=== PATIENT | female | born 1995 | race Caucasian/White ===

== ENCOUNTER 2021-08-04 23:47 | Inpatient (IN) | payer BC ==
[~2021-08-04] VITALS: Ht 165.1 cm; Wt 49.9 kg
--- NOTE | 2021-08-05 00:23 | NUR ---
BIBSELF C/O GEN ABD PAIN X2-3 DAYS. PAST 3 HRS RLQ PAIN WITH NAUSEA. BREATHING EVEN AND UNLABORED PLACED ON MONITOR AND PULSE OX AND ALL V/S STABLE.
[2021-08-05 01:30] LABS: BASOPHILS # (AUTO) 0.1 K/uL (0.0-0.2); BASOPHILS % (AUTO) 0.4 % (0.0-2.0); EOSINOPHILS % (AUTO) 1.4 % (0.0-6.0); HEMATOCRIT 37 % (33-45); HEMOGLOBIN 12.8 g/dL (11.5-14.8); LYMPHOCYTES # (AUTO) 1.7 K/uL (0.8-4.8); LYMPHOCYTES % (AUTO) 9.9 % (20.0-44.0); MEAN CORPUSCULAR HGB CONC 35 g/dl (31.0-36.0); MEAN CORPUSCULAR VOLUME 94 fL (82-100); MONOCYTES # (AUTO) 0.8 K/uL (0.1-1.30); MONOCYTES % (AUTO) 4.8 % (2.0-12.0); NEUTROPHILS # (AUTO) 14.1 K/uL (1.8-8.9); NEUTROPHILS % (AUTO) 83.5 % (43.0-81.0); PLATELET COUNT (AUTO) 242 K/uL (150-450); RED BLOOD CELL COUNT(AUTO) 3.95 MIL/uL (4.0-5.2); WHITE BLOOD COUNT (AUTO) 16.9 K/uL (4.3-11.0)
--- NOTE | 2021-08-05 01:43 | NUR ---
CALLED LAB TO F/U ON URINE
[2021-08-05 01:49] LABS: CALCIUM, SERUM 8.8 mg/dL (8.5-10.1); CREATININE 0.7 mg/dL (0.6-1.3); POTASSIUM 3.5 mmol/L (3.5-5.1)
[2021-08-05 01:53] LABS: BILIRUBIN,URINE NEGATIVE (NEGATIVE); COLOR,URINE YELLOW (YELLOW); LEUKOCYTE ESTERASE ,URINE NEGATIVE (NEGATIVE); NITRITE, URINE NEGATIVE (NEGATIVE); PROTEIN,URINE NEGATIVE (NEGATIVE); UGLUCOSE NEGATIVE (NEGATIVE); UROBILINOGEN,URINE 0.2 EU/dL (0.2)
[2021-08-05 01:55] LABS: ALBUMIN 3.5 g/dL (3.4-5.0); BILIRUBIN,DIRECT 0.1 mg/dL (0.0-0.2); BILIRUBIN,TOTAL 0.3 mg/dL (0.2-1.0); TOTAL PROTEIN, SERUM 7.4 g/dL (6.4-8.2)
[2021-08-05 01:58] LABS: BACTERIA,URINE Moderate /HPF (None Seen); RBC,URINE 0-2 /HPF (0-2); SQUAMOUS EPITHELIAL CELL,UR Few /HPF (None Seen)
[2021-08-05] MEDS ORDERED: CEFTRIAXONE 1GM BAG (ER ONLY) 50 ML IV ONE ×2 (02:21→02:30)
[2021-08-05] MEDS ORDERED: CT SWABBABLE VALVE TRANS SET 1 EA INFUS.SET MC ONE (02:46)
[2021-08-05] MEDS ORDERED: IV NS 0.9% 250 ML IV ONE (02:46)
[2021-08-05] MEDS ORDERED: IOHEXOL-300 100 ML VIAL IV ONE (02:46)
--- NOTE | 2021-08-05 03:14 | NUR ---
[facility]
[2021-08-05] MEDS ORDERED: METRONIDAZOLE 500MG/ NS 100ML 100 ML IV ONE (04:14)
[2021-08-05] MEDS ORDERED: IV NS 0.9% 1,000 ML IV PRN (04:30)
[2021-08-05] MEDS ORDERED: ONDANSETRON HCL/PF 4 MG/2 ML VIAL IVP PRN (04:30)
[2021-08-05] MEDS ORDERED: MORPHINE SULFATE INJ 2 MG/ML DISP.SYRIN IV PRN (04:30)
[2021-08-05] MEDS ORDERED: MAG HYDROX/AL HYDROX/SIMETH 30 ML UDC PO PRN (04:30)
[2021-08-05] MEDS ORDERED: FLAGYL/NS RTU 500 MG/100 ML PIGGYBACK IV ONE (04:30)
--- NOTE | 2021-08-05 04:38 | NUR ---
[facility] SWAB COLLECTED AND SENT TO LAB. PATIENT'S BELONGINGS LIST DONE.
--- NOTE | 2021-08-05 05:22 | NUR ---
REPORT GIVEN TO BRIDGER
--- NOTE | 2021-08-05 05:45 | NUR ---
ADMISSION NOTES PT ARRIVED AROUND 0545. AOx4, ABLE TO MAKE NEEDS KNOWN. ON RA AND TOLERATING WELL. NO SOB NOTED. NO S/SX OF RESPIRATORY DISTRESS NOTED. IV ACCESS IN RAC #18 RUNNING S @ 90 ML/HR. SAFETY PRECAUTIONS IN PLACE: BED IN LOWEST, LOCKED POSITION, SIDERAILS UPx2, AND BRAKES ON. TABLE AND CALL LIGHT WITHIN REACH. WILL CONTINUE TO MONITOR.
[2021-08-05] MEDS ORDERED: PIPERACILLIN /TAZOBACTAM 3.375 G VIAL IV ONE (05:56)
[2021-08-05] MEDS: ZOSYN IVPB 3.375 G in IV D5W 50ml IV ONE ×2 (05:57→06:21)
[2021-08-05] MEDS ORDERED: PIPERACILLIN /TAZOBACTAM 3.375 G in IV D5W 50 ML IV SCH (06:00)
--- NOTE | 2021-08-05 06:00 | NUR ---
PT WAS TRANSFERED TO THIRD FLOOR IN STABLE CONDITION.
[2021-08-05 06:33] VITALS: BP 97/61
--- NOTE | 2021-08-05 06:59 | NUR ---
MS RN CLOSING NOTES PT IN BED, AWAKE. AOx4, ABLE TO MAKE NEEDS KNOWN. ON RA AND TOLERATING WELL. NO SOB NOTED. NO S/SX OF RESPIRATORY DISTRESS NOTED. IV ACCESS IN RAC #18 RUNNING S @ 90 ML/HR. ALL NEEDS MET. PT KEPT NPO PER MD ORDER. PT KEPT CLEAN AND DRY. SAFETY PRECAUTIONS IN PLACE: BED IN LOWEST, LOCKED POSITION, SIDERAILS UPx2, AND BRAKES ON. TABLE AND CALL LIGHT WITHIN REACH. WILL ENDORSE TO ONCOMING SHIFT FOR EFREN.
--- NOTE | 2021-08-05 07:30 | NUR ---
MS RN OPENING NOTES RECEIVED PT IN BED, AWAKE. AOx4, ABLE TO MAKE NEEDS KNOWN. ON RA TOLERATING WELL. NO SOB NOTED. IN NO ACUTE DISTRESS NOTED. IV ACCESS IN RAC #18 RUNNING S @ 90 ML/HR. REINFORCED NPO. SAFETY PRECAUTIONS IN PLACE: BED IN LOWEST, LOCKED POSITION, SIDE RAILS UPx2, AND BRAKES ON, TABLE AND CALL LIGHT WITHIN REACH. WILL CONTINUE TO MONITOR ACCORDINGLY.
[2021-08-05 08:00] VITALS: BP 99/60
[2021-08-05] MEDS: PIPERACILLIN /TAZOBACTAM 3.375 G in IV D5W 100 ML IV SCH ×2 (09:18→17:11)
[2021-08-05] MEDS ORDERED: MULT-447 PO (10:24)
[2021-08-05] MEDS ORDERED: ERGO500093 PO (10:24)
[2021-08-05] MEDS ORDERED: NORG1TAB73 PO (10:24)
--- NOTE | 2021-08-05 10:30 | NUR ---
RN NOTES PATIENT IS FOR LAPAROSCOPIC APPENDECTOMY POSSIBLE OPEN EXPLORATORY TODAY, CONSENT FOR THE PROCEDURE SECURED. DR. MURDOCK DISCUSSED THE PROCEDURE WITH THE PATIENT. PATIENT IS AGREEABLE WITH THE PROCEDURE.
[2021-08-05] MEDS ORDERED: BUPIVACAINE MPF W/EPI 0.25% 30 ML VIAL ONE (12:28)
[2021-08-05] MEDS ORDERED: LIDOCAINE HCL/MPF 1% 30 ML VIAL IJ ONE (12:28)
[2021-08-05] MEDS ORDERED: ANESTHESIA TRAY IN PYXIS 1 EA TRAY MC ONE (12:28)
[2021-08-05] MEDS ORDERED: MIDAZOLAM HCL 2 MG/2ML VIAL ONE (12:42)
[2021-08-05] MEDS ORDERED: HYDROMORPHONE INJ 2 MG/ML DISP.SYRIN ONE (12:42)
[2021-08-05] MEDS ORDERED: ROCURONIUM BROMIDE 50 MG/5 ML ONE (12:43)
--- NOTE | 2021-08-05 12:45 | NUR ---
RN NOTES PATIENT WAS PICKED UP BY [facility] STAFF. LEFT UNIT IN STABLE CONDITION.
[2021-08-05] MEDS ORDERED: LANOLIN/MIN OIL/PETROLAT,WHT 3.5 GM TUBE ONE (13:01)
[2021-08-05] MEDS ORDERED: SODIUM CHLORIDE 0.9% IV PRN (14:31)
[2021-08-05] MEDS ORDERED: LACTATED RINGERS IV PRN (14:31)
--- NOTE | 2021-08-05 14:50 | NUR ---
RN NOTES RECEIVED PATIENT FROM PACU VIA BED, ACCOMPANIED BY MERARY TAYLOR. PATIENT IS AWAKE, ALERT AND ORIENTED X 4. ONGOING IVF OF LRS 1L X 125 CC/HR, INFUSING WELL OVER PATIENT'S RAC. NO S/SX OF INFILTRATION NOTED. NOTED WITH 3 SURGICAL SITES ON THE ABDOMEN, COVERED WITH DRY AND INTACT DRESSING. NO COMPLAINTS OF PAIN AT THIS TIME. SAFETY MEASURES IN PLACE: BED ON LOWEST LOCKED POSITION, SIDE RAILS UP X 2, CALL LIGHT WITHIN EASY REACH. INSTRUCTED ON CLEAR LIQUIDS. WILL CONTINUE TO MONITOR ACCORDINGLY.
[2021-08-05] MEDS ORDERED: HYDROCODONE/APAP 10/325MG TABLET PO PRN (15:00)
[2021-08-05 16:19] LABS: EOSINOPHILS % (AUTO) 0.4 % (0.0-6.0); HEMATOCRIT 36 % (33-45); HEMOGLOBIN 12.3 g/dL (11.5-14.8); LYMPHOCYTES # (AUTO) 1.1 K/uL (0.8-4.8); LYMPHOCYTES % (AUTO) 8.8 % (20.0-44.0); MEAN CORPUSCULAR HGB CONC 34 g/dl (31.0-36.0); MEAN CORPUSCULAR VOLUME 95 fL (82-100); MONOCYTES # (AUTO) 0.1 K/uL (0.1-1.30); MONOCYTES % (AUTO) 1.1 % (2.0-12.0); NEUTROPHILS # (AUTO) 11.3 K/uL (1.8-8.9); NEUTROPHILS % (AUTO) 89.7 % (43.0-81.0); PLATELET COUNT (AUTO) 230 K/uL (150-450); RED BLOOD CELL COUNT(AUTO) 3.79 MIL/uL (4.0-5.2); WHITE BLOOD COUNT (AUTO) 12.6 K/uL (4.3-11.0)
[2021-08-05 16:48] LABS: CALCIUM, SERUM 8.1 mg/dL (8.5-10.1); CREATININE 0.9 mg/dL (0.6-1.3); POTASSIUM 3.7 mmol/L (3.5-5.1)
--- NOTE | 2021-08-05 18:43 | NUR ---
MS RN CLOSING NOTES PATIENT IS IN BED, AWAKE, ALERT AND ORIENTED X 4. ONGOING IVF OF LRS 1L X 125 CC/HR, INFUSING WELL OVER PATIENT'S RAC. NO S/SX OF INFILTRATION NOTED. WITH 3 SURGICAL SITES ON THE ABDOMEN, COVERED WITH DRY AND INTACT DRESSING. NO COMPLAINTS OF PAIN AT THIS TIME. SAFETY MEASURES IN PLACE: BED ON LOWEST LOCKED POSITION, SIDE RAILS UP X 2, CALL LIGHT WITHIN EASY REACH. INSTRUCTED ON CLEAR LIQUIDS. ALL NEEDS ATTENDED AND MET, DUE MEDS GIVEN ORDERED. WILL ENDORSED TO ONCOMING SHIFT FOR EFREN.
--- NOTE | 2021-08-05 19:31 | NUR ---
MS RN OPENING NOTES RECEIVED PT IN BED, AWAKE. AOx4, ABLE TO MAKE NEEDS KNOWN. ON RA AND TOLERATING WELL. NO SOB NOTED. NO S/SX OF RESPIRATORY DISTRESS NOTED. IV ACCESS IN RAC #18 RUNNING LR @ 125 ML/HR. DRESSINGS DRY AND INTACT. SAFETY PRECAUTIONS IN PLACE: BED IN LOWEST, LOCKED POSITION, SIDERAILS UPx2, AND BRAKES ON. TABLE AND CALL LIGHT WITHIN REACH. WILL CONTINUE TO MONITOR.
[2021-08-05 20:52] VITALS: BP 100/60
[2021-08-06 00:56] VITALS: BP 94/60
[2021-08-06] MEDS: PIPERACILLIN /TAZOBACTAM 3.375 G in IV D5W 100 ML IV SCH ×2 (01:53→09:29)
--- NOTE | 2021-08-06 06:34 | NUR ---
MS RN CLOSING NOTES PT IN BED, AWAKE. AOx4, ABLE TO MAKE NEEDS KNOWN. ON RA AND TOLERATING WELL. NO SOB NOTED. NO S/SX OF RESPIRATORY DISTRESS NOTED. IV ACCESS IN RAC #18 RUNNING LR @ 125ML/HR. ALL NEEDS MET. PT KEPT CLEAN AND DRY. NO COMPLAINTS OF PAIN THROUGHOUT SHIFT. SAFETY PRECAUTIONS IN PLACE: BED IN LOWEST, LOCKED POSITION, SIDERAILS UPx2, AND BRAKES ON. TABLE AND CALL LIGHT WITHIN REACH. WILL ENDORSE TO ONCOMING SHIFT FOR EFREN.
[2021-08-06 06:50] LABS: BASOPHILS % (AUTO) 0.1 % (0.0-2.0); EOSINOPHILS % (AUTO) 0.5 % (0.0-6.0); HEMATOCRIT 33 % (33-45); HEMOGLOBIN 11.6 g/dL (11.5-14.8); LYMPHOCYTES # (AUTO) 2.9 K/uL (0.8-4.8); LYMPHOCYTES % (AUTO) 28.3 % (20.0-44.0); MEAN CORPUSCULAR HGB CONC 35 g/dl (31.0-36.0); MEAN CORPUSCULAR VOLUME 94 fL (82-100); MONOCYTES # (AUTO) 0.7 K/uL (0.1-1.30); MONOCYTES % (AUTO) 6.4 % (2.0-12.0); NEUTROPHILS # (AUTO) 6.6 K/uL (1.8-8.9); NEUTROPHILS % (AUTO) 64.7 % (43.0-81.0); PLATELET COUNT (AUTO) 218 K/uL (150-450); RED BLOOD CELL COUNT(AUTO) 3.51 MIL/uL (4.0-5.2); WHITE BLOOD COUNT (AUTO) 10.2 K/uL (4.3-11.0)
[2021-08-06 06:55] LABS: CALCIUM, SERUM 8.9 mg/dL (8.5-10.1); CREATININE 0.8 mg/dL (0.6-1.3); MAGNESIUM 1.9 mg/dL (1.8-2.4); PHOSPHORUS 3.8 mg/dL (2.5-4.9); POTASSIUM 3.5 mmol/L (3.5-5.1)
--- NOTE | 2021-08-06 07:35 | NUR ---
RN OPENING NOTES RECEIVED PT ON BED. AWAKE AND A/O X4. ABLE TO MAKE NEEDS KNOWN. NO C/O PAIN OR DISCOMFORT AT THIS TIME. IV ACCESS ON RAC #18G INTACT AND PATENT WITH LR @ 120ML/HR RUNNING. SAFETY MEASURES IN PLACE: BED LOCKED AND IN LOWEST POSITION, SR UP X2, CALL LIGHT PLACED WITHIN EASY REACH. WILL CONTINUE TO MONITOR.
[2021-08-06 08:00] VITALS: BP 90/61
--- NOTE | 2021-08-06 14:43 | NUR ---
MAKE READY MECHANIC NOTES PATIENT DISCHARGED HOME IN STABLE CONDITION. ALERT AND ORIENTED X4. VITAL SIGNS WNL. ALL BELONGINGS ACCOUNTED FOR, FORMS SIGNED BY PT. IV ACCESS ON RIGHT AC REMOVED, NO BLEEDING NOTED, PRESSURE DRESSING APPLIED. NAME ARMBAND REMOVED. HEALTH TEACHINGS AND DISCHARGE INSTRUCTIONS PROVIDED TO PT WITH VERBALIZATION OF UNDERSTANDING. PATIENT LEFT UNIT AT 1440 VIA W/C, ACCOMPANIED BY STUDENT NURSE TO THE LOBBY. PATIENT P/U BY SIXTO ELLISON. CN AWARE OF DISCHARGE.
== END 2021-08-06 14:45 | disposition home or self-care (01) | DRG 343 ==
LOC: ER 23:47 → MED 08-05 04:54
PROVIDERS: ADMIT Student in an Organized Health Care Education/Training Program; ATTEND Student in an Organized Health Care Education/Training Program
PROC: 0DTJ4ZZ Resection of Appendix, Percutaneous Endoscopic Approach (ICD-10-PCS; principal; 2021-08-05)
DX: K35.80 Unspecified acute appendicitis (principal); Z91.040 Latex allergy status; Z20.822 Contact with and (suspected) exposure to COVID-19; D72.829 Elevated white blood cell count, unspecified
CPT/HCPCS: 36415; 76856-TC; 80048-TC; 80076-TC; 81001; 83605-TC; 83690-TC; 83735-TC; 84100-TC; 84703-TC; 85025-TC; 85730-TC; 86850-TC; 87040-TC; 87081-TC; 87086-TC; G0378; J0696; J1170; J2250; J2543; J3490; J7030; J7050; J7060; J7120; Q9967